=== PATIENT | female | born 1985 | race Two or more races ===

== ENCOUNTER 2021-06-03 18:01 | Emergency (ER) | payer MEDICAID, OTHER ==
[~2021-06-03] VITALS: Ht 165.1 cm; Wt 123.4 kg
[2021-06-03 18:20] VITALS: BP 111/67
[2021-06-03] MEDS ORDERED: IBUPROFEN 800 MG TAB PO ONE (21:45)
[2021-06-03] MEDS ORDERED: ACETAMINOPHEN 500 MG TAB PO ONE (21:45)
== END 2021-06-03 21:53 | disposition home or self-care (01) ==
LOC: ER 18:03
DX: S83.91XA Sprain of unspecified site of right knee, initial encounter (principal); S83.92XA Sprain of unspecified site of left knee, initial encounter; M54.5 Low back pain; W01.0XXA Fall on same level from slipping, tripping and stumbling without subsequent striking against object, initial encounter; Y93.89 Activity, other specified; Y92.89 Other specified places as the place of occurrence of the external cause; Y99.8 Other external cause status
CPT/HCPCS: 73562